=== PATIENT | male | born 1995 | race Caucasian/White ===

== ENCOUNTER → 2020-11-21 16:27 | Outpatient (CLI) | payer OTHER, SELFPAY ==
[2020-11-21 17:35] LABS: Alanine Aminotransferase 17 IU/L (<50); Albumin 4.7 g/dL (3.5-5.0); Albumin Globulin Ratio 1.9 (1.0-2.8); Alkaline Phosphatase 60 U/L (38-126); Amylase 51 U/L (30-110); Aspartate Aminotransferase 24 IU/L (17-59); BUN Creatinine Ratio 18.7 (6-22); Bilirubin Total 0.5 mg/dL (0.2-1.3); Blood Urea Nitrogen 14 mg/dL (9-20); Calcium 9.8 mg/dL (8.4-10.2); Carbon Dioxide 31 mmol/L (22-32); Chloride 102 mmol/L (98-107); Estimated Glomerular Filt Rate > 60.0 mL/min (>60); Globulin 2.5 g/dL (1.7-4.1); Glucose 91 mg/dL (70-100); HEMOLYSIS < 15 (0-50); Lipase 74 U/L (23-300); Potassium 4.1 mmol/L (3.4-5.1); Sodium 138 mmol/L (137-145); Total Protein 7.2 g/dL (6.3-8.2)
== END ==
PROVIDERS: PCP Family Medicine; Referring Provider Physician Assistant; Visit Provider Physician Assistant
DX: R10.10 Upper abdominal pain, unspecified (principal)
CPT/HCPCS: 36415; 80053; 82150; 83690

== ENCOUNTER → 2021-02-21 15:26 | Outpatient (CLI) | payer OTHER, SELFPAY ==
[2021-02-21 15:47] LABS: Hematocrit 41.5 % (41-53); Mean Corpuscular HGB Conc 33.7 % (30-36); Mean Corpuscular Hemoglobin 29.5 PG (26-34); Mean Corpuscular Volume 87.3 fL (80-100); Platelet Count 124 X10^3/uL (150-400); Red Blood Cell Count 4.75 X10^6/uL (4.5-5.9); Red Cell Distribution Width 13.5 % (11.6-14.8); White Blood Cell Count 3.8 X10^3/uL (4.5-11.0)
[2021-02-21 15:57] LABS: Alanine Aminotransferase 11 IU/L (<50); Albumin 4.6 g/dL (3.5-5.0); Albumin Globulin Ratio 1.8 (1.0-2.8); Alkaline Phosphatase 54 U/L (38-126); Aspartate Aminotransferase 20 IU/L (17-59); BUN Creatinine Ratio 21.9 (6-22); Bilirubin Total 0.4 mg/dL (0.2-1.3); Blood Urea Nitrogen 14 mg/dL (9-20); Calcium 9.6 mg/dL (8.4-10.2); Carbon Dioxide 29 mmol/L (22-32); Chloride 102 mmol/L (98-107); Estimated Glomerular Filt Rate > 60.0 mL/min (>60); Globulin 2.6 g/dL (1.7-4.1); Glucose 93 mg/dL (70-100); HEMOLYSIS < 15 (0-50); Lipase 87 U/L (23-300); Potassium 4.4 mmol/L (3.4-5.1); Sodium 137 mmol/L (137-145); Total Protein 7.2 g/dL (6.3-8.2)
[2021-02-21 20:41] LABS: Neutrophils Absolute Manual 2242 /uL (3000-5900); Total Cells Counted 100
[2021-02-21 20:42] LABS: Platelet Estimate Decreased on smear; RBC Morphology Normal Morphology
== END ==
PROVIDERS: PCP Family Medicine; Referring Provider Family Medicine; Visit Provider Family Medicine
DX: R10.12 Left upper quadrant pain (principal)
CPT/HCPCS: 36415; 80053; 83690; 85025

== ENCOUNTER → 2021-02-25 09:35 | Outpatient (CLI) | payer OTHER, SELFPAY ==
--- NOTE | 2021-02-25 09:40 | DI.US.S_ITS ---
PROCEDURE: US ABDOMEN COMPLETE INDICATIONS: LEFT UPPER ABDOMINAL PAIN TECHNIQUE: Real-time scanning was performed of the abdominal and retroperitoneal organs, with image documentation. COMPARISON: None. FINDINGS: Liver: Liver is normal in size and homogeneous in echotexture. Gallbladder: Normal. Biliary ducts: Intrahepatic bile ducts are non-dilated. Extrahepatic bile duct caliber measures 2.7 mm. Normal is 6-7 mm or less in diameter, or 10 mm or less post-cholecystectomy. Pancreas: Visualized portions of the pancreas are sonographically normal. Spleen: Spleen is normal in size and homogeneous in echotexture. Kidneys: Kidneys are normal in size and echotexture. Right kidney measures 11.5 cm long; left kidney measures 11.2 cm long. No hydronephrosis or nephrolithiasis. No solid masses. Aorta: Visualized aorta is normal in caliber at less than 3 cm. Iliacs: Proximal common iliac arteries are normal in caliber at less than 2.5 cm. IVC: Intrahepatic inferior vena cava is patent. Miscellaneous: No free abdominal fluid. IMPRESSION: The pancreas was somewhat poorly visualized due to bowel gas. The upper 3rd of the aorta also could not be well seen due to bowel gas. Elsewhere the study is normal, and source of unexplained weight loss is not found. Follow-up by contrast-enhanced CT scanning may become necessary. Dictated by: Cesar Arriaga M.D. on 02/25/2021 at 16:48 Approved by: Cesar Arriaga M.D. on 02/25/2021 at 16:49
== END ==
PROVIDERS: PCP Family Medicine; Referring Provider Family Medicine; Visit Provider Family Medicine
DX: R10.12 Left upper quadrant pain (principal)
CPT/HCPCS: 76700

== ENCOUNTER 2024-08-31 08:52 | Emergency (ER) | payer OTHER, SELFPAY ==
[2024-08-31 09:01] VITALS: BP 158/99; PULSE 99; RESP 16; TEMP 36.7; O2SAT 97; BMI 27.1
--- NOTE | 2024-08-31 09:04 | ED.GENADULT ---
HPI - General Adult General Chief complaint: Wound/Laceration Stated complaint: infected wound on foot Time Seen by Provider: 08/31/24 08:59 History of Present Illness HPI narrative: 29-year-old gentleman with no significant medical problems including diabetes was wearing a new pair shoes about a week ago developed a blister on the back of his right foot. He has kept a Band-Aid over it but no other problems. Appears to be worsening comes in for further evaluation. He has not complaining of significant pain there was no significant discharge Related Data Previous Rx's Medication Instructions Recorded amitriptyline 50 mg tablet 50 mg PO ONCE PM #90 tabs 02/08/24 cephalexin 500 mg capsule 500 mg PO TID #12 caps 08/31/24 Allergies Allergy/AdvReac Type Severity Reaction Status Date / Time No Known Drug Allergies Allergy Verified 02/08/24 10:51 Review of Systems Review of Systems Narrative: Pertinent positive and negative findings as per HPI Patient History Medical History Left upper quadrant abdominal pain Sebaceous cyst Cannabis abuse (02/07/16) Social History marital status: unmarried,single Smoking Status: Never smoker alcohol intake: current (on occasion) substance use type: marijuana (on occasion) Smoking Status: Never smoker Exam Initial Vital Signs Initial Vital Signs: General: Alert appropriate in no acute distress Respiratory: Able to speak in full sentences, no obvious respiratory distress Skin: No obvious rashes, warm and dry Neurologic: Grossly intact no obvious asymmetries or abnormalities Psych: appropriate insight and affect, cooperative Right lower extremity: There is an area that is slightly macerated under where the bandage he had been. There is 2 small developing ulcers without sign of significant infection. Please see nursing notes for pictures of the wound. There was no surrounding erythema no pain with range of motion at the ankle. Medical Decision Making MDM Narrative Medical decision making narrative: Otherwise healthy 29-year-old gentleman who is known peripheral vascular disease or diabetes with a blister developed in the posterior right heel that is not healing well. Slightly macerated from the dressing he had been using but I am concerned about 2 areas of developing ulceration. We will ask him to use antibiotic ointment, a larger dressing and shoes that do not have any pressure at all on the heel. I am going to place him on 5 days of Keflex to make sure that this does not get infected or if infection is developing preventing it from getting worse. At this point there was no evidence of abscess, osteomyelitis or septic joint. Findings reviewed questions are answered he is safe for discharge Discharge Plan Departure Patient Disposition: Home Clinical Impression: Ulcer of heel Qualifiers: Laterality: right Non-pressure ulcer stage: limited to breakdown of skin Qualified Code(s): L97.411 - Non-pressure chronic ulcer of right heel and midfoot limited to breakdown of skin Activity Restrictions/Additional Instructions: Thank you for coming in today The blister that you developed looks like it is developing into minor ulceration. I am concerned with developing infection and I have given you Keflex to start today, 500 mg 3 times a day along with a prescription for 4 additional days. Regarding wound care, please use antibiotic ointment over the area, a loose dressing and make sure that you have shoes that have no heal at all. You need to avoid all pressure on the wound. If you can keep the foot elevated, again with no pressure on the wound, this can help with healing. If you have fevers, increasing redness, purulent drainage or new findings you do need to come back in for further evaluation I have given you a day of Keflex and a prescription for the remaining 4 days was sent to [facility] Prescriptions: New cephalexin 500 mg capsule 500 mg PO TID Qty: 12 0RF No Action amitriptyline 50 mg tablet 50 mg PO ONCE PM Qty: 90 3RF Referrals: Larry Frey MD [Primary Care Provider] - Stand Alone Forms: Patient Portal/API/Survey
[2024-08-31] MEDS: cephALEXin 250 MG CAP PREPACK 1 BOTTLE MISC (09:10)
[2024-08-31] MEDS: cephALEXin 250 MG CAPSULE 500 MG PO (09:11)
== END 2024-08-31 09:13 | disposition home or self-care (01) ==
PROVIDERS: Emergency Provider Emergency Medicine; PCP Family Medicine
DX: L97.411 Non-pressure chronic ulcer of right heel and midfoot limited to breakdown of skin (principal)
CPT/HCPCS: 99283